=== PATIENT | female | born 1985 | race Caucasian/White ===

== ENCOUNTER 2017-02-11 16:33 | Emergency (ER) | payer OTHER ==
--- NOTE | ~2017-02-11 | EKG ---
PATIENT: FORTINO WNOG UNIT #: [id number] Ventricular Rate: 78 BPM Atrial Rate: 78 BPM P-R Interval: 136 ms QRS Duration: 72 ms Q-T Interval: 368 ms QTC Calculation(Bezet): 419 ms P [place]: 74 degrees Calculated R [place]: 56 degrees Calculated T [place]: 35 degrees Diagnosis Line: Normal sinus rhythm Diagnosis Line: Normal ECG Diagnosis Line: When compared with ECG of 21-JUN-2016 19:31, Diagnosis Line: No significant change was found Diagnosis Line: Confirmed by DARIUS AYALA MD ([id number]) on Diagnosis Line: 02/12/2017 1:51:01 PM INTERPRETING MD: LUCY FERGUSON
--- NOTE | ~2017-02-11 | CR63 ---
[facility] A Service of [facility] RADIOLOGY TEXT RESULTS PATIENT: FORTINO WONG LOCATION: SED : 83 UNIT #: [id number] AGE: [address]: Margot Guerrero APRN SEX: F ORDER DR: [id number] [address] [address] [id number] MR#: [id number] Acc #: [id number] NAME: FORTINO WONG : 1985 SEX: F STUDY DATE/TIME: 02/11/2017 17:05 UNIT: SED ROOM: STUDY DESCRIPTION: CR Chest 2 View Attending Physician: Margot Guerrero A.P.R.N. Ordering Physician: Margot Diamond A.P.R.N. Primary Care Physician: Nell Grijalva A.P.R.N. MEDICAL IMAGING REPORT This report is preliminary unless electronic signature is present. EXAM Chest 2 views dated 02/11/2017. COMPARISON Chest 2 views dated 04/10/2014. HISTORY Cough and congestion since Sunday. TECHNIQUE 2 views of the chest were obtained. FINDINGS PA and lateral examination of the chest upright shows a good expansion of the parenchyma with a normal distribution of the pulmonary vascularity. There is no indication of congestion, effusion, infiltrate, tumor, or nodular density. The pleural reflections and diaphragmatic contours are normal. The cardiac silhouette and mediastinal anatomy is within normal limits. IMPRESSION Normal chest. Dictated by... Peter Haddad M.D. THIS IS AN ELECTRONICALLY VERIFIED REPORT Peter Haddad M.D. at 02/14/2017 9:15 AM CPR/gz TD: 02/12/2017 09:37 JOB #: [id number] [facility] A Service of [facility] RADIOLOGY TEXT RESULTS PATIENT: FORTINO WONG LOCATION: SED : 84 UNIT #: [id number] AGE: [address]: Margot Guerrero APRN SEX: F ORDER DR: MEDICAL IMAGING REPORT Page 1 of 1
[~2017-02-11 16:33] MED LIST: ACULAR10 ML OU; ALBUTEROL17 G1 IH; ALBUTEROL17 GM INH; AMOXICILLIN875 MG PO; BACTRIM DS TABL1 TA1 PO; BENTYL20 MG PO; BENZONATATE PO; ERYTHROMYCIN O3.5 GM OU; FAMOTIDINE PO; FLEXERIL PO; FLEXERIL10 M1 PO; FLEXERIL10 MG PO; IBUPROFEN; IBUPROFEN PO; LORTAB 5/500 TA1 TA1 PO; LORTAB ELIXIR480 ML PO; MOBIC PO; MOTRIN600 M1 PO; NO MEDICATIONS; OMEPRAZOLE40 MG PO; PREDNISONE10 MG PO; PREDNISONE10 MG/DOSE PO; ROBAXIN 750750 M1 PO; ULTRAM PO; VOLTAREN75 MG PO; ZITHROMAX500 MG PO
[2017-02-11] MEDS ORDERED: LORTAB 5-325 M1 EACH PO (16:46)
== END 2017-02-11 18:05 | disposition home or self-care (01) ==
LOC: SED 16:33
DX: J20.9 Acute bronchitis, unspecified (principal); J06.9 Acute upper respiratory infection, unspecified; F41.9 Anxiety disorder, unspecified; F17.210 Nicotine dependence, cigarettes, uncomplicated
CPT/HCPCS: 71020; 93005; 99283